=== PATIENT | male | born 1945 | race Caucasian/White ===

== ENCOUNTER → 2016-08-18 | Outpatient (CLI) | payer OTHER ==
--- NOTE | 2016-08-18 08:58 | DI ---
CT ABDOMEN/PELVIS W/O CONTRAST,08/18/2016 7:57 AM: Clinical History: Kidney stones. Previous Exam: September 19, 2009 Findings: The lung bases are clear. There are a few colonic diverticula without evidence of acute diverticuliti s. There is some mild left hydronephrosis. There are a few parenchymal stones noted within the left kidney. The adrenals and pancreas are unremarkable. The spleen and gallbladder are unremarkable. There is mil d fatty infiltration of the liver. There is no free fluid. Impression: Diverticulosis without evidence of acute diverticulitis. Fatty infiltration of the liver.
== END ==
LOC: CT 07:49
PROVIDERS: ATTEND Urology
DX: N13.30 Unspecified hydronephrosis (principal); Z87.442 Personal history of urinary calculi; K57.90 Diverticulosis of intestine, part unspecified, without perforation or abscess without bleeding
CPT/HCPCS: 74176

== ENCOUNTER → 2016-09-09 | Outpatient (CLI) | payer OTHER | LOC: MMPC 09:00 | DX: C61 Malignant neoplasm of prostate (principal); R97.20 Elevated prostate specific antigen [PSA]; K21.9 Gastro-esophageal reflux disease without esophagitis; E55.9 Vitamin D deficiency, unspecified; R73.9 Hyperglycemia, unspecified | CPT/HCPCS: 99213; G0463 ==

== ENCOUNTER → 2016-09-25 | Outpatient (CLI) | payer OTHER | LOC: MMPC 11:11 | PROVIDERS: ATTEND Surgery | DX: Z12.11 Encounter for screening for malignant neoplasm of colon (principal) | CPT/HCPCS: 99201; G0463 ==

== ENCOUNTER 2016-10-02 07:20 | Day surgery (SDC) | payer OTHER ==
[~2016-10-02 07:20] MED LIST: LIDOCAINE W/ SODIUM BICARB 0.5 ML SYR ONE; Lactated Ringers 1,000 ML PRIMARY IV ONE
[2016-10-02 07:39] VITALS: RESP 12
--- NOTE | 2016-10-02 08:21 | GEN.OPNOTE ---
Colonoscopy Procedure Note Surgery Date: 10/02/16 Preoperative Diagnosis: Screening for colon cancer Postoperative Diagnosis: Screening for colon cancer. Small sessile polyp seen in the cecum Procedure: Colonoscopy with polypectomy Surgeon: Ritesh Cisneros MD Anesthesia Provider: Anand Munoz CRNA Anesthesia Type: MAC Indications: Colon cancer screening Findings: Prep : Excellent Cecum : Scope was advanced to the cecum. Ileocecal valve clearly identified. Patient had a small sessile polyp removed with snare. Patient also had a diverticulum just above the ileocecal valve Ascending : Ascending colons within normal limits Transverse : Transverse colon had no pathology Sigmoid : Descending colon and sigmoid colon free from disease Rectum : No abnormal pathology seen in the rectum Digital Rectal Exam : Prostate smooth and regular no rectal masses A lubricated flexible colonoscope was inserted and passed to the blind end of the cecum.
[2016-10-02 08:31] VITALS: TEMP 96.8
== END 2016-10-02 09:05 | disposition home or self-care (01) ==
LOC: SDSC 07:20
PROVIDERS: ATTEND Surgery
DX: Z12.11 Encounter for screening for malignant neoplasm of colon (principal); K63.5 Polyp of colon
CPT/HCPCS: 45385; J2704; J7120